=== PATIENT | female | born 1960 | race African-American/Black ===

== ENCOUNTER 2016-04-12 09:47 | Emergency (ER) | payer MEDICARE, MEDICAID | END 2016-04-12 11:33 | disposition home or self-care (01) | LOC: ER 09:47 | DX: R04.0 Epistaxis (principal); Z87.891 Personal history of nicotine dependence; Z79.899 Other long term (current) drug therapy; I10 Essential (primary) hypertension; K21.9 Gastro-esophageal reflux disease without esophagitis; M10.9 Gout, unspecified | CPT/HCPCS: 36415; 80053; 85025; 85610; 85730 ==